=== PATIENT | female | born 1995 | race American Indian/Alaskan Native ===

== ENCOUNTER 2017-09-25 20:44 | Emergency (ER) | payer MEDICAID ==
[2017-09-25 22:14] LABS: Bacteria,Urine 1+ /HPF (Negative); Bilirubin,Urine NEG (Negative); Blood,Urine NEG (Negative); Color,Urine Yellow (Yellow); HCG Qualitative,Urine Negative (Negative); Mucus,Urine 1+ /HPF; Urobilinogen,Urine < 2.0 mg/dL (<2.0)
--- NOTE | 2017-09-26 03:39 | Emergency Department Report ---
ED Female HPI - General Chief complaint: Urogenital-Female Stated complaint: INFECTION Time Seen by Provider: 09/26/17 03:30 Source: patient Mode of arrival: Ambulatory Limitations: No Limitations - History of Present Illness Initial comments: Patient reports that she had Mirena checkup 2 weeks ago which was September 08 and she had full STD check to include herpes and HIV done which were negative except she was positive for bacterial vaginosis and she was given Flagyl and she just finished Flagyl 2 days ago. She is complaining now she is having itching and curd like discharge from her vaginal area with redness that looks like red dots inside her labia. Denies any fever or chills. Denies any vaginal bleeding. Pain is 2 out of 10 to her vaginal area and she is also complaining of burning with urination. Pain is worse with touch and said site is very itchy and she finds herself rubbing it a lot. Patient denies any odor to discharge. Denies any concerns for STD. She says she's had a yeast infection in the past and she knows that it is a yeast infection. Denies any nausea or vomiting. Denies any back pain or abdominal pain. She said she went to natural doctor and the doctor gave her some medication to mix and water and drink to help clear up infection. She was accident me if it works and I told her never heard of it so she will have to talk to the doctor gave it to her if she needs more answers to her questions. MD Complaint: vaginal discharge, dysuria Onset/Timin -: days(s) Location: labia Radiation: non-radiating Severity: mild Severity scale (0 -10): 2 Quality: burning Consistency: constant Improves with: none Worsens with: urination Are you Now?: No Associated Symptoms: vaginal discharge, dysuria. denies: vaginal bleeding, abdominal pain, nausea/vomiting, fever/chills, headaches, loss of appetite, hematuria, rash, seizure, shortness of breath, syncope, weakness - Related Data Sexually active: No Previous Rx's Medication Instructions Recorded Last Taken Type Fluconazole [Diflucan TAB] 150 mg PO ONCE 1 Days #1 tablet 09/26/17 Unknown Rx Nitrofurantoin Monohyd/M-Cryst 100 mg PO Q12H 7 Days #14 capsule 09/26/17 Unknown Rx [Macrobid 100 mg Capsule] Nystatin Cream [Mycostatin Cream] 1 applic TP BID 7 Days #1 tube 09/26/17 Unknown Rx diphenhydrAMINE [Benadryl CAP] 50 mg PO Q8HR PRN #12 capsule 09/26/17 Unknown Rx Allergies Allergy/AdvReac Type Severity Reaction Status Date / Time No Known Allergies Allergy Unverified 09/25/17 21:24 ED Review of Systems ROS: Stated complaint: INFECTION Other details as noted in HPI Comment: All other systems reviewed and negative Constitutional: no symptoms reported ENT: denies: throat pain Respiratory: no symptoms reported Cardiovascular: denies: chest pain, palpitations, dyspnea on exertion, edema, syncope, paroxysmal nocturnal dyspnea Gastrointestinal: denies: abdominal pain, nausea, vomiting, diarrhea, constipation, hematemesis, melena, hematochezia Genitourinary: dysuria, discharge, other (redness and red spots to the vaginal area). denies: urgency, frequency, hematuria Musculoskeletal: denies: back pain, arthralgia, myalgia Skin: rash, pruritus Neurological: denies: headache ED Past Medical Hx - Past Medical History Previous Medical History?: Yes Additional medical history: Buldging discs (L2-L5) (C1-C3) - Surgical History Past Surgical History?: Yes Additional Surgical History: - Family History Family history: no significant - Social History Smoking Status: Never Smoker Substance Use Type: None - Medications Home Medications: Home Medications Medication Instructions Recorded Confirmed Last Taken Type Fluconazole [Diflucan TAB] 150 mg PO ONCE 1 Days #1 tablet 09/26/17 Unknown Rx Nitrofurantoin Monohyd/M-Cryst 100 mg PO Q12H 7 Days #14 capsule 09/26/17 Unknown Rx [Macrobid 100 mg Capsule] Nystatin Cream [Mycostatin Cream] 1 applic TP BID 7 Days #1 tube 09/26/17 Unknown Rx diphenhydrAMINE [Benadryl CAP] 50 mg PO Q8HR PRN #12 capsule 09/26/17 Unknown Rx ED Physical Exam - General Limitations: No Limitations General appearance: alert, in no apparent distress - Head Head exam: Present: atraumatic, normocephalic, normal inspection - Eye Eye exam: Present: normal appearance, PERRL, EOMI Pupils: Present: normal accommodation - ENT ENT exam: Present: normal exam, normal orophraynx, mucous membranes moist - Neck Neck exam: Present: normal inspection, full ROM, other (no C-spine tenderness). Absent: tenderness, lymphadenopathy - Respiratory Respiratory exam: Present: normal lung sounds bilaterally. Absent: chest wall tenderness - Cardiovascular Cardiovascular Exam: Present: regular rate, normal rhythm, normal heart sounds - GI/Abdominal GI/Abdominal exam: Present: soft, normal bowel sounds. Absent: distended, tenderness, guarding, rebound, rigid, organomegaly, mass, bruit, pulsatile mass , hernia - External exam: Present: erythema, swelling (mild swelling to the labia), other ( noted thick white discharge between the labia minora. And erythema to the labia ). Absent: normal external exam, lesions, lacerations, ecchymosis, bleeding - Extremities Exam Extremities exam: Present: normal inspection, full ROM, normal capillary refill , other (no clubbing, cyanosis or edema. Positive pulses all extremities and no neurovascular compromise.). Absent: tenderness, pedal edema, joint swelling , calf tenderness - Back Exam Back exam: Present: normal inspection, full ROM, other (plates without any difficulties). Absent: tenderness, CVA tenderness (R), CVA tenderness (L), muscle spasm, paraspinal tenderness, vertebral tenderness, rash noted - Neurological Exam Neurological exam: Present: alert, oriented X3, normal gait - Psychiatric Psychiatric exam: Present: normal affect, normal mood - Skin Skin exam: Present: warm, dry, intact, rash, erythema - Expanded Skin Exam Expanded Type of lesion: Present: rash Distribution of rash: genitals Description of rash: Present: tenderness, erythematous, swelling, discharge ( thick white discharge without any odor). Absent: fluctuant, indurated ED Course Vital Signs 09/25/17 21:07 Temperature 98.6 F Pulse Rate 87 Respiratory 18 Rate Blood Pressure 128/92 O2 Sat by Pulse 100 Oximetry - Reevaluation(s) Reevaluation #1: 09/26/17 05:38 She received Rocephin 1 g IM for urinary tract infection. Urine culture sent and pending she is able to tolerate fluids in the emergency room. ED Medical Decision Making - Lab Data Lab Results 09/25/17 Range/Units 21:50 Urine Color Yellow (Yellow) Urine Turbidity Clear (Clear) Urine pH 7.0 (5.0-7.0) Ur Specific [place] 1.027 (1.003-1.030) Urine Protein 30 mg/dl (Negative) mg/dL Urine Glucose (UA) Neg (Negative) mg/dL Urine Ketones Neg (Negative) mg/dL Urine Blood Neg (Negative) Urine Nitrite Neg (Negative) Ur Reducing Substances Not Reportable Urine Bilirubin Neg (Negative) Urine Ictotest Not Reportable Urine Urobilinogen < 2.0 (<2.0) mg/dL Ur Leukocyte Esterase Lg (Negative) Urine WBC (Auto) 38.0 H (0.0-6.0) /HPF Urine RBC (Auto) 27.0 (0.0-6.0) /HPF U Epithel Cells (Auto) 8.0 (0-13.0) /HPF Urine Bacteria (Auto) 1+ (Negative) /HPF Urine Mucus 1+ /HPF Urine HCG, Qual Negative (Negative) Urine culture sent and pending - Medical Decision Making ED Course: He presents to emergency room complaining of vaginal itching and thick white clumpy discharge after completing Flagyl 2 days ago for bacterial vaginosis. She had full STD workup to include herpes and HIV 2 weeks ago with [facility] checkup. She said that she was positive for bacterial vaginosis and he placed her on Flagyl which she took for 7 days. Patient said she has a yeast infection because she had similar incident in the past and is having white thick discharge and severe itching to onset of vaginal with some urinary burning. Urinalysis positive for large amount of leukocyte Estrace, positive for white blood cell and 1+ bacteria with 30 protein. Urine test is negative. I discussed results of patient and also I discussed diagnosis and treatment plan and she voiced understanding. Examination to the external vaginal area revealed erythema, yeast like infection around the labia and thick white discharge between the labia minora. No need for STD testing because patient said that she had full STD workup 2 weeks ago and it was negative except for bacterial vaginosis and she is not currently sexually active at present. Patient given Rocephin 1 g IM in emergency room without any first reaction. I discussed with her that she needs to follow up with her [employer] and if she does not have [employer] which she does have after completion of antibiotic for urinary tract infection for repeat urinalysis. I also discussed with her that up with our medication to treat yeast that she should take one today and then one after she completed antibiotic if yeast infection is not gone. Patient also will be placed in antifungal cream for vulvovaginitis. Patient stable to service home in stable condition with prescription for Diflucan on, Macrobid and nystatin cream. Was also given prescription for Benadryl to help with itching in her vaginal area. Critical care attestation.: If time is entered above; I have spent that time in minutes in the direct care of this critically ill patient, excluding procedure time. ED Disposition Clinical Impression: Vulvovaginitis due to Gisele, Vaginal discharge, Dysuria, Acute cystitis without hematuria Disposition: TO HOME OR SELFCARE Is pt being admited?: No Does the pt Need Aspirin: No Condition: Stable Instructions: Dysuria (ED), Urinary Tract Infection in Women (ED), Vulvovaginal Candidiasis (ED) Additional Instructions: Please take Diflucan on one today and then one after completing antibiotic for urinary tract infection a few yeast infection is not on Take Benadryl as prescribed for vaginal itching but please in a drive or operate heavy machinery while taking this medicine Increasing her fluid intake to 2-3 L of water and cranberry juice daily Take Macrobid for urinary tract infection Use nystatin cream topically to vaginal area for yeast infection. Follow-up with your [employer] doctor after completion of antibiotic to have repeat urinalysis and checkup status post bacterial vaginosis and vulvovaginitis. Prescriptions: diphenhydrAMINE [Benadryl CAP] 50 mg PO Q8HR PRN #12 capsule PRN Reason: vaginal itching Fluconazole [Diflucan TAB] 150 mg PO ONCE 1 Days #1 tablet Nitrofurantoin Monohyd/M-Cryst [Macrobid 100 mg Capsule] 100 mg PO Q12H 7 Days # 14 capsule Nystatin Cream [Mycostatin Cream] 1 applic TP BID 7 Days #1 tube Referrals: NIURKA MORALES MD [Primary Care Provider] - 7-10 days Forms: Work/School Release Form(ED)
[2017-09-26] MEDS ORDERED: ROCEPHIN IM STA (03:42)
[2017-09-26] MEDS ORDERED: XYLOCAINE 1% MPF 5 mL INFILTRATI ONE (03:42)
[2017-09-26 06:14] VITALS: BP 126/88
== END 2017-09-26 06:49 | disposition home or self-care (01) ==
LOC: ED 20:44
DX: B37.3 Candidiasis of vulva and vagina (principal); N30.00 Acute cystitis without hematuria
CPT/HCPCS: 81001; 81025; 87086; 96372; 99284; J0696